=== PATIENT | female | born 1980 | race Caucasian/White ===

== ENCOUNTER 2016-08-06 23:59 | Emergency (ER) | payer OTHER | END 2016-08-07 00:05 | disposition home or self-care (01) | LOC: CFTX 23:59 | DX: G89.18 Other acute postprocedural pain (principal); K08.89 Other specified disorders of teeth and supporting structures; Z88.0 Allergy status to penicillin; Z88.1 Allergy status to other antibiotic agents; Z91.040 Latex allergy status | CPT/HCPCS: 96372; 99283; J1885 ==

== ENCOUNTER 2016-08-21 18:54 | Emergency (ER) | payer OTHER ==
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
== END 2016-08-21 21:05 | disposition home or self-care (01) ==
LOC: CFTX 18:54
DX: S09.90XA Unspecified injury of head, initial encounter (principal); S60.211A Contusion of right wrist, initial encounter; F17.210 Nicotine dependence, cigarettes, uncomplicated; Z88.0 Allergy status to penicillin; Z88.1 Allergy status to other antibiotic agents; Z91.040 Latex allergy status; Y04.0XXA Assault by unarmed brawl or fight, initial encounter; Y92.410 Unspecified street and highway as the place of occurrence of the external cause
CPT/HCPCS: 70450; 70486; 72040; 73090; 73110; 84703; 96372; 99284; J1885